=== PATIENT | female | born 1970 | race Two or more races ===

== ENCOUNTER 2020-11-12 17:29 | Emergency (ER) | payer MEDICAID ==
[~2020-11-12] VITALS: Ht 167.6 cm; Wt 74.0 kg
[2020-11-12 20:10] LABS: BASOPHILS % 0.4 % (0.0-2.0); HEMOGLOBIN. 12.5 g/dL (12.0-16.0); MEAN CORPUSCULAR HEMOGLOBIN 26.8 pg (28.0-32.0); MEAN CORPUSCULAR VOLUME 81.7 fL (81.0-99.0); MEAN PLATELET VOLUME 7.9 fl (7.4-10.4); MONOCYTES % 5.7 % (2.0-8.0); NEUTROPHILS % 51.9 % (40.0-76.0); PLATELET 279 x1000/uL (130-400); RED BLOOD CELL COUNT 4.65 mill/uL (4.2-5.4); RED CELL DISTRIBUTION WIDTH 13.3 % (11.6-14.6)
[2020-11-12 20:14] LABS: CHLORIDE 100 mEq/L (98-107)
[2020-11-12 20:17] LABS: CLARITY URINE CLEAR (CLEAR); COLOR URINE YELLOW (YELLOW); KETONES URINE TRACE (NEGATIVE); LEUKOCYTE ESTERASE URINE NEGATIVE (NEGATIVE); NITRITE URINE NEGATIVE (NEGATIVE); OCCULT BLOOD URINE NEGATIVE (NEGATIVE); PROTEIN URINE NEGATIVE (NEGATIVE); SPECIFIC GRAVITY URINE 1.025 (1.005-1.030); UROBILINOGEN URINE 0.2 E.U./dL (0.2-1.0)
[2020-11-12] MEDS: KETOROLAC 30MG/ML VIAL IV STA (20:27)
[2020-11-12] MEDS: SODIUM CHLORIDE 0.9% 1,000 ML IV ONE (20:27)
[2020-11-12 21:30] VITALS: BP 131/83
[2020-11-12] MEDS ORDERED: IBUP-2028 MT (21:39)
== END 2020-11-12 21:50 | disposition home or self-care (01) ==
LOC: ER 17:29
DX: R10.31 Right lower quadrant pain (principal); E11.9 Type 2 diabetes mellitus without complications; I10 Essential (primary) hypertension; Z98.890 Other specified postprocedural states
CPT/HCPCS: 36415; 74176; 80053; 81003; 83690; 85025; 93005; 96361; 96374; 99285; J1885; J7030

== ENCOUNTER 2021-12-16 09:16 | Emergency (ER) | payer MEDICAID ==
[~2021-12-16] VITALS: Ht 167.6 cm; Wt 70.0 kg
[~2021-12-16 09:16] MED LIST: IBUP-2028 MT
[2021-12-16] MEDS ORDERED: TETRACAINE 0.5% OPHTH DROPS 4ML LEFTEYE ONE (15:00)
[2021-12-16] MEDS ORDERED: FLUORESCEIN SODIUM 1MG/STRIP LEFTEYE ONE (15:00)
[2021-12-16 15:55] VITALS: BP 127/65
== END 2021-12-16 15:57 | disposition home or self-care (01) ==
LOC: ER 09:52
DX: H43.392 Other vitreous opacities, left eye (principal)
CPT/HCPCS: 82962; 99283

== ENCOUNTER 2024-01-30 16:55 | Emergency (ER) | payer MEDICAID, MEDICARE, OTHER ==
[~2024-01-30] VITALS: Ht 167.6 cm; Wt 69.0 kg
[2024-01-30 17:03] VITALS: TEMP 98; O2SAT 99
[2024-01-30 18:07] LABS: BASOPHILS % 0.5 % (0.0-2.0); EOSINOPHILS % 3.6 % (0.0-5.0); HEMATOCRIT. 39.4 % (36.0-48.0); HEMOGLOBIN. 12.6 g/dL (12.0-16.0); LYMPHOCYTES % 34.7 % (20.0-50.0); MEAN CORPUSCULAR HEMOGLOBIN 26.4 pg (28.0-32.0); MEAN CORPUSCULAR HGB CONC 32.1 g/dL (31.0-37.0); MEAN CORPUSCULAR VOLUME 82.3 fL (81.0-99.0); MEAN PLATELET VOLUME 8.1 fl (7.4-10.4); MONOCYTES % 5.6 % (2.0-8.0); NEUTROPHILS % 55.6 % (40.0-76.0); PLATELET 296 x1000/uL (130-400); RED BLOOD CELL COUNT 4.79 mill/uL (4.2-5.4)
[2024-01-30 18:12] LABS: CHLORIDE 103 mEq/L (98-107); POTASSIUM 4.3 mEq/L (3.5-5.1); SODIUM 138 mEq/L (136-145)
[2024-01-30 18:13] LABS: CARBON DIOXIDE 28 mEq/L (21-32)
[2024-01-30 18:14] LABS: CALCIUM 9.7 mg/dL (8.7-10.4)
[2024-01-30 18:18] LABS: GLUCOSE 267 mg/dL (70-105); UREA NITROGEN BLOOD 13 mg/dL (9-23)
[2024-01-30 18:22] LABS: TROPONIN I HIGH SENSITIVITY < 4 ng/L (3.0-34)
[2024-01-30] MEDS ORDERED: HYDR50TA54 MT (20:54)
[2024-01-30] MEDS ORDERED: TOPUD MT (20:54)
[2024-01-30] MEDS: ACETAMINOPHEN 325MG TABLET PO ONE (21:09)
[2024-01-30 21:14] VITALS: BP 110/65; PULSE 65; RESP 18; O2SAT 99
== END 2024-01-30 21:15 | disposition home or self-care (01) ==
LOC: ER 16:55
DX: R07.89 Other chest pain (principal); E11.9 Type 2 diabetes mellitus without complications; I10 Essential (primary) hypertension; F41.9 Anxiety disorder, unspecified
CPT/HCPCS: 36415; 71045; 80048; 84484; 85025; 93005; 99285